=== PATIENT | female | born 1960 | race Caucasian/White ===

== ENCOUNTER 2018-04-30 09:51 | Day surgery (SDC) | payer BC ==
[~2018-04-30] VITALS: Ht 157.5 cm; Wt 61.8 kg
[2018-04-30] MEDS ORDERED: LACTATED RINGERS 1,000 ML IV SCH (10:13)
[2018-04-30 10:16] VITALS: BP 119/80
[2018-04-30] MEDS ORDERED: PLEASE ENTER HEIGHT AND WEIGHT MC SCH (10:30)
[2018-04-30] MEDS ORDERED: PLEASE ENTER ALLERGIES MC SCH (10:30)
[2018-04-30] MEDS ORDERED: LIDOCAINE-MPF 1%, 2ML INFIL ONE (10:30)
[2018-04-30] MEDS ORDERED: GABA600T2 PO ×2 (10:36)
[2018-04-30] MEDS ORDERED: HYDR-882 PO (10:36)
[2018-04-30] MEDS ORDERED: MORP30TA81 PO (10:36)
[2018-04-30] MEDS ORDERED: FLUO20CA8 PO (10:36)
[2018-04-30] MEDS ORDERED: OxyconTIN ER 10 MG TAB.ER PO ONE (11:00)
[2018-04-30] MEDS ORDERED: GABAPENTIN 300 MG CAPSULE PO ONE (11:00)
[2018-04-30] MEDS ORDERED: ACETAMINOPHEN 500 MG TABLET PO ONE (11:00)
[2018-04-30] MEDS ORDERED: MIDAZOLAM 1 MG/ML, 2ML ONE (11:13)
[2018-04-30] MEDS ORDERED: FENTANYL PF 250 MCG/5ML ONE (11:13)
[2018-04-30] MEDS ORDERED: EPINEPHRINE 1 MG/ML, 1ML ONE (13:10)
[2018-04-30] MEDS ORDERED: BACITRACIN 50,000 UNIT ONE (13:10)
[2018-04-30] MEDS ORDERED: BUPIVACAINE/PF 0.25% ONE (13:10)
[2018-04-30] MEDS ORDERED: THROMBIN 5,000 UNIT VIAL TP ONE (13:10)
[2018-04-30] MEDS ORDERED: CEFAZOLIN 1,000 MG ONE (13:26)
[2018-04-30] MEDS ORDERED: GLYCOPYRROLATE 0.2MG/1ML, 5ML ONE (13:26)
[2018-04-30] MEDS ORDERED: NEOSTIGMINE 1 MG/ML, 10ML ONE (13:26)
[2018-04-30] MEDS ORDERED: SUCCINYLCHOLINE 20 MG/ML, 10ML ONE (13:26)
[2018-04-30] MEDS ORDERED: ROCURONIUM 10 MG/ML,10ML ONE (13:26)
[2018-04-30] MEDS ORDERED: PROPOFOL 10 MG/ML, 20ML ONE (13:26)
[2018-04-30] MEDS ORDERED: ONDANSETRON 2MG/ML, 2ML ONE (13:26)
[2018-04-30] MEDS ORDERED: DEXAMETHASONE 4 MG/ML, 1ML ONE (13:26)
[2018-04-30] MEDS ORDERED: BUPIVACAINE/PF 0.25% INFIL ONE (13:57)
[2018-04-30] MEDS ORDERED: OXYcodone 5 MG/5 ML ORAL.SOL UDC ONE (15:27)
[2018-04-30] MEDS ORDERED: FENTANYL PF 100 MCG/2ML ONE (15:27)
[2018-04-30] MEDS ORDERED: OXYcodone 5 MG/5 ML ORAL.SOL UDC PO PRN (15:30)
[2018-04-30] MEDS ORDERED: MEPERIDINE/PF 25MG/0.5ML IVPush PRN (15:30)
[2018-04-30] MEDS ORDERED: hydrALAzine 20 MG/ML, 1ML IV PRN (15:30)
[2018-04-30] MEDS: FENTANYL PF 100 MCG/2ML IV PRN ×3 (15:30→15:50)
[2018-04-30] MEDS ORDERED: PROMETHAZINE 25 MG/ML, 1ML IV PRN (15:30)
[2018-04-30] MEDS ORDERED: ALBUTEROL SULFATE 2.5 MG/3 ML NPPB PRN (15:30)
[2018-04-30] MEDS ORDERED: HYDROmorphone 1 MG/ML, 1ML IV PRN (15:30)
[2018-04-30] MEDS ORDERED: KETOROLAC 30 MG/1 ML IV PRN (15:30)
[2018-04-30] MEDS ORDERED: LABETALOL 5MG/ML, 20ML IV PRN (15:30)
[2018-04-30] MEDS ORDERED: METOCLOPRAMIDE 5 MG/ML, 2ML IV PRN (15:30)
[2018-04-30] MEDS ORDERED: ONDANSETRON 2MG/ML, 2ML IVPush PRN (15:30)
[2018-04-30] MEDS ORDERED: HYDROmorphone 2 MG/ML, 1ML ONE (15:53)
== END 2018-04-30 18:45 | disposition home or self-care (01) ==
LOC: OUT 09:51
PROVIDERS: ATTEND Neurological Surgery
DX: M54.16 Radiculopathy, lumbar region (principal); M48.061 Spinal stenosis, lumbar region without neurogenic claudication; Z88.8 Allergy status to other drugs, medicaments and biological substances
CPT/HCPCS: 63047; 63056; 72100; J0171; J0330; J0690; J1100; J1170; J2250; J2405; J2704; J2710; J3010; J3490; J7120